=== PATIENT | female | born 1995 | race African-American/Black ===

== ENCOUNTER 2021-07-10 02:38 | Emergency (ER) | payer MEDICAID, OTHER ==
[~2021-07-10] VITALS: Ht 165.1 cm; Wt 68.2 kg
[~2021-07-10 02:38] MED LIST: NONE PER PT
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
[2021-07-10 02:51] VITALS: BP 123/83
[2021-07-10] MEDS ORDERED: IBUPROFEN 600 MG TABLET ONE (03:21)
[2021-07-10] MEDS ORDERED: DIPH,PERTUSS(ACELL),TET VAC/PF 0.5 ML IM-VACC ONE ×3 (03:21→06:14)
[2021-07-10] MEDS ORDERED: LIDOCAINE-MPF 1%, 5ML ONE ×3 (03:21→03:53)
[2021-07-10] MEDS ORDERED: ACETAMINOPHEN 500 MG TABLET ONE (03:21)
[2021-07-10] MEDS ORDERED: LIDOCAINE-MPF 1%, 5ML INFIL ONE (03:30)
[2021-07-10] MEDS ORDERED: ACETAMINOPHEN 500 MG TABLET PO ONE (03:30)
[2021-07-10] MEDS ORDERED: IBUPROFEN 600 MG TABLET PO ONE (03:30)
[2021-07-10] MEDS ORDERED: NEOSPORIN OINT. PKT 1 PACKET ONE (05:59)
== END 2021-07-10 06:52 | disposition home or self-care (01) ==
LOC: ED 05:28
DX: S91.311A Laceration without foreign body, right foot, initial encounter (principal); S91.011A Laceration without foreign body, right ankle, initial encounter; S91.114A Laceration without foreign body of right lesser toe(s) without damage to nail, initial encounter; S40.012A Contusion of left shoulder, initial encounter; M25.532 Pain in left wrist; X58.XXXA Exposure to other specified factors, initial encounter; Y93.89 Activity, other specified; Y92.89 Other specified places as the place of occurrence of the external cause; Y99.8 Other external cause status
CPT/HCPCS: 12004; 90471; 90715